=== PATIENT | male | born 1965 | race Caucasian/White ===

== ENCOUNTER 2020-01-19 16:13 | Observation (INO) ==
[2020-01-19] MEDS ORDERED: Aspirin 81 MG TAB.CHEW PO ONE (16:16)
[2020-01-19] MEDS ORDERED: Nitroglycerin 0.4 MG TAB.SUBL SL PRN (16:16)
[2020-01-19 16:33] LABS: Basophils # 0.1 K/mcL (0.0-0.2); Basophils % 0.7 %; Eosinophils # 0.2 K/mcL (0.0-0.6); Eosinophils % 1.7 %; Hematocrit 47.7 % (37.5-50.1); Hemoglobin 16.2 g/dL (12.9-16.9); Immature Granulocytes % 0.8 % (0-4); Lymphocytes # 1.9 K/mcL (0.6-4.6); Lymphocytes % 22.1 %; Mean Corpuscular Hemoglobin 30.6 pg (28.0-33.3); Mean Corpuscular Volume 90.2 fL (83.0-100.0); Mean Platelet Volume 10.2 fL (9.4-12.4); Neutrophils # 5.5 K/mcL (1.6-8.9); Platelet Count 207 K/mcL (140-400); Red Blood Count 5.29 M/mcL (4.19-5.50); Segmented Neutrophils % 63.7 %; White Blood Count 8.6 K/mcL (4.3-11.1)
[2020-01-19 16:44] LABS: Prothrombin Time 11.6 Seconds (9.4-12.1)
[2020-01-19 16:46] LABS: Activated Partial Thrombo Time 35.3 Seconds (26.0-36.0)
[2020-01-19 17:00] LABS: Troponin I < 0.03 ng/mL (< 0.04)
[2020-01-19 17:02] LABS: BUN/Creatinine Ratio 25 (6-26); Blood Urea Nitrogen 17 mg/dL (6-20); Calcium 10.1 mg/dL (8.6-10.3); Carbon Dioxide 23 mEq/L (23-29); Chloride 107 mEq/L (98-107); Glucose 103 mg/dL (70-105); Osmolality,Calculated 286 (280-300); Potassium 4.2 mEq/L (3.5-5.1); Sodium 137 mEq/L (136-145); eGFR For African Americans > 60 (> 60); eGFR For Non-African Americans > 60 (> 60)
[2020-01-19] MEDS ORDERED: Naloxone 0.4 MG/ML INJ IVP PRN (17:40)
[2020-01-19] MEDS ORDERED: Perflutren Lipid Microsphere 1.3 ML in 0.9 % Sodium Chloride 8.7 ML IVP PRN (17:56)
[2020-01-20 05:46] LABS: Chol/HDL Ratio 7.1 (0-4.9); Cholesterol 184 mg/dL (< 200); HDL Cholesterol 26 mg/dL (40-59); LDL Cholesterol,Calculated 85 mg/dL (< 100); Triglycerides 365 mg/dL (< 150)
[2020-01-20 05:47] LABS: Troponin I < 0.03 ng/mL (< 0.04)
[2020-01-20] MEDS ORDERED: Regadenoson 0.4 MG/5 ML SYRINGE IVP ONE (06:33)
[2020-01-20 07:59] LABS: Estimated Average Glucose 128 mg/dl
[2020-01-20] MEDS ORDERED: Aspirin 81 MG TAB.CHEW PO SCH (09:00)
[2020-01-20 11:50] VITALS: BP 138/88
== END 2020-01-20 15:31 | disposition home or self-care (01) ==
LOC: 3BNU 16:13 → EMEROOARM 16:13 → 3BNU 18:24
PROVIDERS: ADMIT Internal Medicine; ATTEND Internal Medicine

== ENCOUNTER 2020-05-18 19:08 | Inpatient (IN) ==
[2020-05-18] MEDS ORDERED: Morphine Sulfate 2 MG/ML SYRINGE IVP ONE (19:54)
[2020-05-18] MEDS ORDERED: Isovue-370 500 ML BOTTLE IVP ONE (19:54)
[2020-05-18] MEDS ORDERED: Ondansetron 4 MG/2 ML VIAL IVP ONE (19:54)
[2020-05-18] MEDS ORDERED: 0.9 % Sodium Chloride 1,000 ML IVC ONE ×2 (19:54→21:32)
[2020-05-18 20:48] LABS: Bilirubin,Urine Negative (Negative); Blood,Urine Trace (Negative); Clarity,Urine Clear (Clear); Color,Urine Yellow (Yellow); Glucose,Urine (UA) Normal (Normal); Ketones,Urine 40 mg/dL (Negative); Leukocyte Esterase,Urine Negative (Negative); Mucus,Urine Few per lpf (None-Few); Nitrite,Urine Negative (Negative); Protein,Urine 100 mg/dL (Neg-Trace); RBC,Urine 0-3 per hpf (0-3); Specific Gravity,Urine > 1.030 (1.010-1.025); Squamous Epithelial Cell,Urine Few per hpf (None-Few); Urobilinogen,Urine Normal (Normal); WBC,Urine 0-3 per hpf (0-3)
[2020-05-18 20:52] LABS: Basophils % 0.5 %; Hemoglobin 20.5 g/dL (12.9-16.9); Immature Granulocytes % 0.5 % (0-4); Lymphocytes # 0.6 K/mcL (0.6-4.6); Lymphocytes % 7.8 %; Mean Corpuscular HGB Conc 34.9 g/dL (31.6-35.5); Mean Corpuscular Hemoglobin 31.6 pg (28.0-33.3); Mean Corpuscular Volume 90.6 fL (83.0-100.0); Mean Platelet Volume 10.2 fL (9.4-12.4); Monocytes % 12.5 %; Platelet Count 195 K/mcL (140-400); Red Blood Count 6.49 M/mcL (4.19-5.50); Red Cell Distribution Width 13.6 % (11.5-14.5); Segmented Neutrophils % 78.7 %; White Blood Count 7.7 K/mcL (4.3-11.1)
[2020-05-18 20:54] LABS: Hematocrit 58.8 % (37.5-50.1)
[2020-05-18 21:21] LABS: Albumin 4.9 g/dL (3.5-5.7); Albumin/Globulin Ratio 1.4 (1.1-2.2); Alkaline Phosphatase 66 Units/L (34-104); Aspartate Amino Transferase 348 Units/L (13-39); BUN/Creatinine Ratio 27 (6-26); Bilirubin,Direct 0.2 mg/dL (0.0-0.2); Bilirubin,Indirect 0.6 mg/dL (0.0-1.0); Bilirubin,Total 0.8 mg/dL (0.3-1.0); Blood Urea Nitrogen 22 mg/dL (6-20); Calcium 9.7 mg/dL (8.6-10.3); Carbon Dioxide 25 mEq/L (23-29); Chloride 100 mEq/L (98-107); Globulin 3.6 g/dL (2.4-3.5); Glucose 130 mg/dL (70-105); Lipase 61 Units/L (11-82); Osmolality,Calculated 289 (280-300); Potassium 3.9 mEq/L (3.5-5.1); Sodium 137 mEq/L (136-145); Total Protein 8.5 g/dL (6.4-8.9); Troponin I < 0.03 ng/mL (< 0.04); eGFR For African Americans > 60 (> 60); eGFR For Non-African Americans > 60 (> 60)
[2020-05-18 21:36] LABS: INR 1.2; Prothrombin Time 14.3 Seconds (9.4-12.1)
[2020-05-18 21:48] LABS: Alanine Aminotransferase > 5000 Units/L (7-52)
[2020-05-18 22:39] LABS: Hepatitis B Surface Antigen Nonreactive (Nonreactive)
[2020-05-18 22:46] LABS: Acetaminophen < 10 mcg/mL (10-20)
[2020-05-18 23:08] LABS: Hepatitis B Core IgM Nonreactive (Nonreactive); Hepatitis C Virus Antibody Nonreactive (Nonreactive)
[2020-05-18 23:10] LABS: Hepatitis A Antibody IgM Nonreactive (Nonreactive)
[2020-05-18 23:13] LABS: Amphetamine Screen,Urine Negative ng/mL (Cutoff=1000); Barbiturate Screen,Urine Negative ng/mL (Cutoff=200); Benzodiazepines Screen,Urine Negative ng/mL (Cutoff=200); Cannabinoid Screen,Urine Negative ng/mL (Cutoff = 50); Cocaine Screen,Urine Negative ng/mL (Cutoff= 300); Opiate Screen,Urine Negative ng/mL (Cutoff=300); Phencyclidine Screen,Urine Negative ng/mL (Cutoff=25)
[2020-05-18] MEDS ORDERED: D5 IVC ONE (23:22)
[2020-05-18] MEDS ORDERED: ACETYLCYSTEINE IVC ONE (23:22)
[2020-05-18] MEDS ORDERED: WATER IVC ONE (23:22)
[2020-05-18 23:26] LABS: Salicylate < 2.5 mg/dL (15.0-30.0)
[2020-05-19] MEDS ORDERED: WATER IVC ONE ×2 (01:00→05:00)
[2020-05-19] MEDS ORDERED: D5 IVC ONE ×2 (01:00→05:00)
[2020-05-19] MEDS ORDERED: ACETYLCYSTEINE IVC ONE ×2 (01:00→05:00)
[2020-05-19] MEDS ORDERED: *HR* Heparin 5,000 UNIT/ML VIAL IVP PRN ×2 (01:14)
[2020-05-19] MEDS ORDERED: *HR* Heparin 5,000 UNIT/ML VIAL IVP ONE (01:14)
[2020-05-19] MEDS ORDERED: GI Cocktail 40 ML EACH PO ONE (01:25)
[2020-05-19] MEDS ORDERED: Ondansetron ODT 4 MG TAB.RAPDIS SL PRN (01:31)
[2020-05-19] MEDS ORDERED: Naloxone 0.4 MG/ML INJ IVP PRN (01:31)
[2020-05-19] MEDS ORDERED: Ondansetron 4 MG/2 ML VIAL ONE (01:38)
[2020-05-19 02:07] LABS: Hematocrit 51.9 % (37.5-50.1); Hemoglobin 17.2 g/dL (12.9-16.9); Mean Corpuscular HGB Conc 33.1 g/dL (31.6-35.5); Mean Corpuscular Hemoglobin 30.6 pg (28.0-33.3); Mean Corpuscular Volume 92.3 fL (83.0-100.0); Platelet Count 164 K/mcL (140-400); Red Blood Count 5.62 M/mcL (4.19-5.50); Red Cell Distribution Width 13.3 % (11.5-14.5); White Blood Count 7.5 K/mcL (4.3-11.1)
[2020-05-19 02:25] LABS: Alanine Aminotransferase 393 Units/L (7-52); Albumin 4.1 g/dL (3.5-5.7); Albumin/Globulin Ratio 1.5 (1.1-2.2); Alkaline Phosphatase 54 Units/L (34-104); Aspartate Amino Transferase 235 Units/L (13-39); BUN/Creatinine Ratio 28 (6-26); Bilirubin,Total 0.5 mg/dL (0.3-1.0); Blood Urea Nitrogen 18 mg/dL (6-20); Calcium 8.1 mg/dL (8.6-10.3); Carbon Dioxide 21 mEq/L (23-29); Chloride 104 mEq/L (98-107); Ethanol < 10 mg/dL (Less than 10); Globulin 2.7 g/dL (2.4-3.5); Glucose 173 mg/dL (70-105); Osmolality,Calculated 286 (280-300); Potassium 3.7 mEq/L (3.5-5.1); Sodium 135 mEq/L (136-145); Total Protein 6.8 g/dL (6.4-8.9); eGFR For African Americans > 60 (> 60); eGFR For Non-African Americans > 60 (> 60)
[2020-05-19 02:26] LABS: Lactate Dehydrogenase 289 Units/L (140-271)
[2020-05-19 02:49] LABS: Ferritin > 1500 ng/mL (20-250)
[2020-05-19] MEDS: Heparin 25,000UNIT/250ML 1/2NS 25,000 UNIT/250 ML IV.SOLN IVC SCH (03:05)
[2020-05-19 03:22] LABS: Acetaminophen < 10 mcg/mL (10-20)
[2020-05-19] MEDS: dexAMETHasone 4 MG TABLET PO SCH (07:24)
[2020-05-19] MEDS: Ondansetron 4 MG/2 ML VIAL IVP PRN (16:10)
[2020-05-19 23:17] LABS: Basophils % 0.4 %; Eosinophils # 0.1 K/mcL (0.0-0.6); Eosinophils % 2.1 %; Hematocrit 53.3 % (37.5-50.1); Hemoglobin 18.2 g/dL (12.9-16.9); Immature Granulocytes % 0.4 % (0-4); Lymphocytes # 0.8 K/mcL (0.6-4.6); Lymphocytes % 14.8 %; Mean Corpuscular HGB Conc 34.1 g/dL (31.6-35.5); Mean Corpuscular Hemoglobin 31.7 pg (28.0-33.3); Mean Corpuscular Volume 92.7 fL (83.0-100.0); Monocytes # 0.7 K/mcL (0.0-1.3); Monocytes % 12.9 %; Neutrophils # 3.9 K/mcL (1.6-8.9); Platelet Count 143 K/mcL (140-400); Red Blood Count 5.75 M/mcL (4.19-5.50); Red Cell Distribution Width 13.2 % (11.5-14.5); Segmented Neutrophils % 69.4 %; White Blood Count 5.7 K/mcL (4.3-11.1)
[2020-05-19 23:28] LABS: Albumin 4.1 g/dL (3.5-5.7); Albumin/Globulin Ratio 1.4 (1.1-2.2); Bilirubin,Direct 0.1 mg/dL (0.0-0.2); Bilirubin,Indirect 0.4 mg/dL (0.0-1.0); Bilirubin,Total 0.5 mg/dL (0.3-1.0); Globulin 2.9 g/dL (2.4-3.5)
[2020-05-20 05:20] LABS: Hematocrit 53.6 % (37.5-50.1); Hemoglobin 18.8 g/dL (12.9-16.9); Immature Platelets 5.4 % (1.1-6.1); Mean Corpuscular HGB Conc 35.1 g/dL (31.6-35.5); Mean Corpuscular Hemoglobin 31.4 pg (28.0-33.3); Mean Corpuscular Volume 89.6 fL (83.0-100.0); Mean Platelet Volume 10.6 fL (9.4-12.4); Red Blood Count 5.98 M/mcL (4.19-5.50); White Blood Count 6.8 K/mcL (4.3-11.1)
[2020-05-20 05:25] LABS: Heparin anti-factor XA UFH 0.57 IU/mL (0.30-0.70); INR 1.3; Prothrombin Time 15.1 Seconds (9.4-12.1)
[2020-05-20 06:06] LABS: Alanine Aminotransferase 354 Units/L (7-52); Albumin/Globulin Ratio 1.4 (1.1-2.2); Alkaline Phosphatase 58 Units/L (34-104); Aspartate Amino Transferase 220 Units/L (13-39); BUN/Creatinine Ratio 21 (6-26); Bilirubin,Total 0.5 mg/dL (0.3-1.0); Blood Urea Nitrogen 12 mg/dL (6-20); Calcium 8.4 mg/dL (8.6-10.3); Carbon Dioxide 16 mEq/L (23-29); Chloride 100 mEq/L (98-107); Globulin 2.9 g/dL (2.4-3.5); Glucose 105 mg/dL (70-105); Osmolality,Calculated 270 (280-300); Potassium 3.9 mEq/L (3.5-5.1); Sodium 130 mEq/L (136-145); Total Protein 6.9 g/dL (6.4-8.9); eGFR For African Americans > 60 (> 60); eGFR For Non-African Americans > 60 (> 60)
[2020-05-20] MEDS ORDERED: *HR* Enoxaparin 40 MG/0.4 ML SYRINGE SQ SCH (07:33)
[2020-05-20] MEDS: dexAMETHasone 4 MG TABLET PO SCH (09:29)
[2020-05-20] MEDS: *HR* Enoxaparin 40 MG/0.4 ML SYRINGE SQ SCH (09:52)
[2020-05-20] MEDS: Ondansetron 4 MG/2 ML VIAL IVP PRN (17:12)
[2020-05-20] MEDS: Metoprolol XL (24 HR) Succ 25 MG TAB.ER.24H PO SCH (17:36)
[2020-05-20] MEDS: Gabapentin 300 MG CAPSULE PO SCH (20:50)
[2020-05-20] MEDS: Heparin 25,000UNIT/250ML 1/2NS 25,000 UNIT/250 ML IV.SOLN IVC SCH (23:42)
[2020-05-21] MEDS: Ondansetron 4 MG/2 ML VIAL IVP PRN ×2 (02:37→09:15)
[2020-05-21 03:06] LABS: Hemoglobin 18.4 g/dL (12.9-16.9); Mean Corpuscular HGB Conc 33.5 g/dL (31.6-35.5); Mean Corpuscular Hemoglobin 30.4 pg (28.0-33.3); Mean Corpuscular Volume 90.8 fL (83.0-100.0); Mean Platelet Volume 10.3 fL (9.4-12.4); Platelet Count 163 K/mcL (140-400); Red Blood Count 6.06 M/mcL (4.19-5.50); White Blood Count 5.8 K/mcL (4.3-11.1)
[2020-05-21 03:18] LABS: Alanine Aminotransferase 300 Units/L (7-52); Albumin 4.1 g/dL (3.5-5.7); Albumin/Globulin Ratio 1.3 (1.1-2.2); Alkaline Phosphatase 65 Units/L (34-104); Aspartate Amino Transferase 147 Units/L (13-39); BUN/Creatinine Ratio 25 (6-26); Bilirubin,Total 0.5 mg/dL (0.3-1.0); Blood Urea Nitrogen 15 mg/dL (6-20); Calcium 8.9 mg/dL (8.6-10.3); Carbon Dioxide 26 mEq/L (23-29); Chloride 98 mEq/L (98-107); Globulin 3.1 g/dL (2.4-3.5); Glucose 115 mg/dL (70-105); Osmolality,Calculated 278 (280-300); Potassium 3.9 mEq/L (3.5-5.1); Sodium 133 mEq/L (136-145); Total Protein 7.2 g/dL (6.4-8.9); eGFR For African Americans > 60 (> 60); eGFR For Non-African Americans > 60 (> 60)
[2020-05-21] MEDS: *HR* Enoxaparin 40 MG/0.4 ML SYRINGE SQ SCH (04:59)
[2020-05-21] MEDS ORDERED: Prochlorperazine 10 MG/2 ML VIAL IVP PRN (06:20)
[2020-05-21] MEDS: dexAMETHasone 4 MG TABLET PO SCH (09:16)
[2020-05-21] MEDS: Gabapentin 300 MG CAPSULE PO SCH ×3 (09:16→19:45)
[2020-05-21] MEDS: Famotidine 20 MG TABLET PO SCH (09:16)
[2020-05-21] MEDS: Metoprolol XL (24 HR) Succ 25 MG TAB.ER.24H PO SCH (17:31)
[2020-05-22 04:03] LABS: Hemoglobin 19.1 g/dL (12.9-16.9); Mean Corpuscular HGB Conc 33.6 g/dL (31.6-35.5); Mean Corpuscular Hemoglobin 30.7 pg (28.0-33.3); Mean Corpuscular Volume 91.2 fL (83.0-100.0); Mean Platelet Volume 9.8 fL (9.4-12.4); Platelet Count 154 K/mcL (140-400); Red Blood Count 6.23 M/mcL (4.19-5.50); Red Cell Distribution Width 13.2 % (11.5-14.5); White Blood Count 7.4 K/mcL (4.3-11.1)
[2020-05-22 04:05] LABS: Hematocrit 56.8 % (37.5-50.1)
[2020-05-22 04:25] LABS: BUN/Creatinine Ratio 30 (6-26); Blood Urea Nitrogen 22 mg/dL (6-20); Calcium 8.6 mg/dL (8.6-10.3); Carbon Dioxide 25 mEq/L (23-29); Chloride 99 mEq/L (98-107); Glucose 112 mg/dL (70-105); Osmolality,Calculated 280 (280-300); Potassium 3.8 mEq/L (3.5-5.1); Sodium 133 mEq/L (136-145); eGFR For African Americans > 60 (> 60); eGFR For Non-African Americans > 60 (> 60)
[2020-05-22] MEDS: *HR* Enoxaparin 40 MG/0.4 ML SYRINGE SQ SCH (05:20)
[2020-05-22] MEDS: Ondansetron 4 MG/2 ML VIAL IVP PRN (05:45)
[2020-05-22] MEDS: Famotidine 20 MG TABLET PO SCH (08:23)
[2020-05-22] MEDS: Gabapentin 300 MG CAPSULE PO SCH ×3 (08:23→20:06)
[2020-05-22] MEDS: dexAMETHasone 4 MG TABLET PO SCH (08:23)
[2020-05-22 09:22] LABS: ANA IgG by ELISA NONE DETECTED (None Detected)
[2020-05-22] MEDS ORDERED: Prochlorperazine 10 MG/2 ML VIAL IVP ONE (12:30)
[2020-05-22] MEDS: Metoprolol XL (24 HR) Succ 25 MG TAB.ER.24H PO SCH (16:07)
[2020-05-23] MEDS: *HR* Enoxaparin 40 MG/0.4 ML SYRINGE SQ SCH (05:17)
[2020-05-23] MEDS: Ondansetron 4 MG/2 ML VIAL IVP PRN (07:30)
[2020-05-23] MEDS: Famotidine 20 MG TABLET PO SCH (07:54)
[2020-05-23] MEDS: dexAMETHasone 4 MG TABLET PO SCH (07:54)
[2020-05-23] MEDS: Gabapentin 300 MG CAPSULE PO SCH ×3 (07:55→21:31)
[2020-05-23 14:55] LABS: Albumin 3.9 g/dL (3.5-5.7); Albumin/Globulin Ratio 1.3 (1.1-2.2); Bilirubin,Direct 0.2 mg/dL (0.0-0.2); Bilirubin,Indirect 0.5 mg/dL (0.0-1.0); Bilirubin,Total 0.7 mg/dL (0.3-1.0); Globulin 3.1 g/dL (2.4-3.5)
[2020-05-23] MEDS: Metoprolol XL (24 HR) Succ 25 MG TAB.ER.24H PO SCH (17:20)
[2020-05-23] MEDS ORDERED: Furosemide 20 MG/2 ML VIAL IVP ONE (18:28)
[2020-05-24 02:49] LABS: Hemoglobin 19.3 g/dL (12.9-16.9); Mean Corpuscular HGB Conc 33.3 g/dL (31.6-35.5); Mean Corpuscular Hemoglobin 31.3 pg (28.0-33.3); Mean Platelet Volume 9.9 fL (9.4-12.4); Platelet Count 165 K/mcL (140-400); Red Blood Count 6.16 M/mcL (4.19-5.50); Red Cell Distribution Width 13.4 % (11.5-14.5); White Blood Count 7.8 K/mcL (4.3-11.1)
[2020-05-24 02:51] LABS: Hematocrit 57.9 % (37.5-50.1)
[2020-05-24 03:04] LABS: BUN/Creatinine Ratio 29 (6-26); Blood Urea Nitrogen 22 mg/dL (6-20); Calcium 9.1 mg/dL (8.6-10.3); Carbon Dioxide 31 mEq/L (23-29); Chloride 96 mEq/L (98-107); Glucose 99 mg/dL (70-105); Osmolality,Calculated 281 (280-300); Sodium 134 mEq/L (136-145); eGFR For African Americans > 60 (> 60); eGFR For Non-African Americans > 60 (> 60)
[2020-05-24] MEDS: *HR* Enoxaparin 40 MG/0.4 ML SYRINGE SQ SCH (05:39)
[2020-05-24] MEDS: Ondansetron 4 MG/2 ML VIAL IVP PRN (06:00)
[2020-05-24] MEDS: Famotidine 20 MG TABLET PO SCH (07:58)
[2020-05-24] MEDS: dexAMETHasone 4 MG TABLET PO SCH (07:58)
[2020-05-24] MEDS: Gabapentin 300 MG CAPSULE PO SCH ×3 (07:58→23:14)
[2020-05-24] MEDS: Ondansetron 4 MG/2 ML VIAL IVP SCH ×2 (16:00→23:13)
[2020-05-24] MEDS: Metoprolol XL (24 HR) Succ 25 MG TAB.ER.24H PO SCH (16:00)
[2020-05-25] MEDS: *HR* Enoxaparin 40 MG/0.4 ML SYRINGE SQ SCH (05:52)
[2020-05-25] MEDS: Ondansetron 4 MG/2 ML VIAL IVP SCH (05:53)
[2020-05-25 06:41] VITALS: BP 122/79
[2020-05-25] MEDS: dexAMETHasone 4 MG TABLET PO SCH ×2 (10:01→10:02)
[2020-05-25] MEDS: Gabapentin 300 MG CAPSULE PO SCH (10:02)
[2020-05-25] MEDS: Famotidine 20 MG TABLET PO SCH (10:02)
== END 2020-05-25 11:20 | DRG 177 ==
LOC: EMEROOARM 19:08 → 2NENU 19:08 → 3BNU 05-20 17:02
PROVIDERS: ADMIT Internal Medicine; ATTEND Internal Medicine